=== PATIENT | female | born 1960 | race Caucasian/White ===

== ENCOUNTER 2016-11-14 06:50 | Observation (INO) | payer OTHER ==
[2016-11-14] VITALS (12 sets, daily range): BP systolic 106–141; BP diastolic 64–97; PULSE 67–86; RESP 18–20; TEMP 97.7–98.2; O2SAT 94–98
[~2016-11-14] VITALS: Ht 160 cm; Wt 98.8 kg
[~2016-11-14 06:50] MED LIST: ADVAI100I; ALBU8I INH; ALLE24TA PO; CULT10CA2 PO; HYDR-2768 PO; IBUP-1116 PO; LORA-474 PO; METO100T PO; PANT20 PO; PRED20 PO; SPIRCAP INH; VITA-83 PO
[2016-11-14] MEDS ORDERED: ADVA250A INH (07:20)
[2016-11-14] MEDS ORDERED: ALBUAER3 INH (07:20)
[2016-11-14] MEDS ORDERED: PROT40TA PO (07:20)
[2016-11-14] MEDS ORDERED: LORA1TAB12 PO (07:20)
[2016-11-14] MEDS ORDERED: METO100T PO (07:20)
[2016-11-14] MEDS ORDERED: SPIRCAP INH (07:20)
--- NOTE | 2016-11-14 07:27 | PD ---
HPI Chief Complaint: Chest Pain Time Seen by Provider: 07:18 Travel History International Travel<30 days: No Contact w/Intl Traveler<30days: No Traveled to known affect area: No History of Present Illness HPI 55-year-old female notes chest pressure across her left chest intermittently over the past month. She states today she had a feeling of generalized weakness and felt like she was given a pass out additionally. She states that recently her doctor increased her Advair dose to manage her COPD and since then she hasn't had any issues with her COPD. She denies increased use in her rescue inhaler. She denies other concurrent complaints. She denies taking an aspirin yet today. She states she feels worse when she moves around. She denies other modifying factors. Quality is pressure. Severity is moderate. She states had a cardiac catheterization with Dr. Clifton 2 years ago that showed narrow vessels without significant damage but too narrow to stent per patient. PFSH Past Medical History Asthma: Yes Autoimmune Disease: Yes (SJOGRENS) Anxiety: Yes Cancer: No Cardiovascular Problems: Yes (HX OF CP/POSS GASTRIC PAIN/CARDIAC CATH-TINY VEINS) COPD: Yes Diminished Hearing: No Endocrine: No Gastrointestinal Disorders: Yes (GASTROPARESIS/SJOGREN'S DISEASE) GERD: Yes Glaucoma: No Genitourinary: No Hepatitis: No Hiatal Hernia: No Hypertension: Yes Immune Disorder: Yes (SJORGRENS DISEASE) Musculoskeletal: Yes (OA) Neurologic: Yes (BACK AND NECK) Psychiatric: Yes (CLAUSTROPHOBIA, ANXIETY) Reproductive: No Respiratory: Yes (COPD) Immunizations Current: Yes Pneumonia: Yes Thyroid Disease: No PNEUMOCCOCAL Vaccine (Year): 2 ?: Not Menopausal: Yes : 3 Para: 3 Miscarriage: 0 : 0 Past Surgical History Abdominal Surgery: Yes ( EXPLORATORY LAP, MIDLINE HERNIA REPAIR, EXP LAP FOR ADHESIONS) Appendectomy: Yes (2001) Cardiac Surgery: Yes (CARDIAC CATH) Cholecystectomy: Yes (3) Endocrine Surgery: No Gynecologic Surgery: Yes (TL, HYSTERECTOMY) Hysterectomy: Yes (partial) Joint Replacement: Yes (LEFT/RIGHT TOTAL KNEE) Oral Surgery: Yes (TONSILLECTOMY AND ADENOIDECTOMY) Pacemaker: No Tonsillectomy: Yes Other Surgery: Yes (2001,"part of intestines removed,ileum and cecum") Family History Family Myocardial Infarction: Yes Social History Alcohol Use: No Tobacco Use: Yes (07/18-1 PPD) Substance Use: No Allergies-Medications (Allergen,Severity, Reaction): Coded Allergies: Amoxicillin (Verified Allergy, Severe, YEAST INFECTION, 11/14/16) AMOXICILLIN TABS Contrast Media (Verified Allergy, Severe, hives, 11/14/16) Honey Bee (Verified Allergy, Severe, "allergic to honey,throat closes up" , 11/14/16) Latex (Verified Allergy, Severe, RASH,ITCHING, 11/14/16) Morphine (Verified Allergy, Severe, HIVES, 11/14/16) Nut Tree (Verified Allergy, Severe, "throat closes up", 11/14/16) [place] Nut (Verified Allergy, Severe, "throat closes up", 11/14/16) Shellfish (Verified Allergy, Severe, HIVES, 11/14/16) Iodine (Verified Allergy, Unknown, TOPICAL IODINE CAUSES RASH, 11/14/16) Reglan (Verified Adverse Reaction, Severe, ANXIETY, 11/14/16) REGLAN TABS Wheat (Verified Adverse Reaction, Severe, GI UPSET, 11/14/16) Uncoded Allergies: HONEY (Allergy, Severe, HIVES, SOB, 07/15/11) HONEY IN FOOD ADHES (Allergy, Mild, RASH, 02/16/15) LATEX BANDAIDS, NOTHING WITH LATEX Reported Meds & Prescriptions Reported Meds & Active Scripts Active Reported Lorazepam 1 Mg Tab 1 Mg PO BID PRN Protonix (Pantoprazole Sodium) 40 Mg Tab 40 Mg PO DAILY Metoprolol Tartrate 100 Mg Tab 100 Mg PO BID Spiriva Handihaler (Tiotropium Inh) 18 Mcg Cap 18 Mcg INH DAILY 1 capsule = 18 mcg Proair Hfa 8.5 GM Inh (Albuterol Sulfate) 90 Mcg/Act Aer 2 Puff INH Q4-6H PRN 108 mcg/actuation Advair Diskus Inh (Fluticasone-Salmeterol Inh) 250-50 Mcg/Blist Aer 1 Puff INH BID Rinse mouth after use. Review of Systems Except as stated in HPI: all other systems reviewed are Neg Physical Exam Narrative GENERAL: Well-nourished, well-developed patient. SKIN: Warm and dry. HEAD: Normocephalic and atraumatic. EYES: No injection or drainage. ENT: No nasal drainage noted. NECK: Supple, trachea midline. CARDIOVASCULAR: Regular rate and rhythm RESPIRATORY: Breath sounds equal bilaterally. No accessory muscle use. GASTROINTESTINAL: Abdomen soft, non-tender, nondistended. EXTREMITIES: No edema. NEUROLOGICAL: Awake and alert. Motor and sensory grossly within normal limits. Normal speech. Data Data Last Documented VS Vital Signs Date Time Temp Pulse Resp B/P Pulse Ox O2 Delivery O2 Flow Rate FiO2 11/14/16 08:41 67 18 111/64 98 Room Air 11/14/16 06:58 97.7 Orders Electrocardiogram (11/14/16 07:23) Ckmb (Isoenzyme) Profile (11/14/16 07:23) Complete Blood Count With Diff (11/14/16 07:23) Comprehensive Metabolic Panel (11/14/16 07:23) Magnesium (Mg) (11/14/16 07:23) Prothrombin Time / Inr (Pt) (11/14/16 07:23) Act Partial Throm Time (Ptt) (11/14/16 07:23) Troponin I (11/14/16 07:23) Chest, Single Ap (11/14/16 07:23) Ecg Monitoring (11/14/16 07:23) Bilateral Bp Monitoring (11/14/16 07:23) Iv Access Insert/Monitor (11/14/16 07:23) Oximetry (11/14/16 07:23) Aspirin (Aspirin) (11/14/16 07:30) Sodium Chloride 0.9% Flush (Ns Flush) (11/14/16 07:30) Nitroglycerin Sl (Nitrostat Sl) (11/14/16 07:30) Sodium Chlorid 0.9% 500 Ml Inj (Ns 500 M (11/14/16 07:30) CKMB (11/14/16 07:30) CKMB% (11/14/16 07:30) Admit Order (Ed Use Only) (11/14/16 08:31) Labs Laboratory Tests Test 11/14/16 07:30 White Blood Count 5.8 TH/MM3 Red Blood Count 4.64 MIL/MM3 Hemoglobin 12.3 GM/DL Hematocrit 37.6 % Mean Corpuscular Volume 81.1 FL Mean Corpuscular Hemoglobin 26.4 PG Mean Corpuscular Hemoglobin 32.6 % Concent Red Cell Distribution Width 15.4 % Platelet Count 293 TH/MM3 Mean Platelet Volume 8.4 FL Neutrophils (%) (Auto) 57.0 % Lymphocytes (%) (Auto) 29.8 % Monocytes (%) (Auto) 8.4 % Eosinophils (%) (Auto) 3.9 % Basophils (%) (Auto) 0.9 % Neutrophils # (Auto) 3.3 TH/MM3 Lymphocytes # (Auto) 1.7 TH/MM3 Monocytes # (Auto) 0.5 TH/MM3 Eosinophils # (Auto) 0.2 TH/MM3 Basophils # (Auto) 0.1 TH/MM3 CBC Comment DIFF FINAL Differential Comment Prothrombin Time 10.1 SEC Prothromb Time International 0.9 RATIO Ratio Activated Partial 24.7 SEC Thromboplast Time Sodium Level 142 MEQ/L Potassium Level 3.5 MEQ/L Chloride Level 105 MEQ/L Carbon Dioxide Level 26.0 MEQ/L Anion Gap 11 MEQ/L Blood Urea Nitrogen 13 MG/DL Creatinine 0.84 MG/DL Estimat Glomerular Filtration 70 ML/MIN Rate Random Glucose 122 MG/DL Calcium Level 8.5 MG/DL Magnesium Level 1.8 MG/DL Total Bilirubin 0.3 MG/DL Aspartate Amino Transf 28 U/L (AST/SGOT) Alanine Aminotransferase 45 U/L (ALT/SGPT) Alkaline Phosphatase 67 U/L Total Creatine Kinase 216 U/L Creatine Kinase MB 4.0 NG/ML Creatine Kinase MB % 1.9 % Troponin I LESS THAN 0.02 NG/ML Total Protein 6.5 GM/DL Albumin 3.5 GM/DL MDM Medical Decision Making Medical Screen Exam Complete: Yes Emergency Medical Condition: Yes Medical Record Reviewed: Yes (past history confirmed) Interpretation(s) EKG shows NSR, no ST elevation or depression, and no arrhythmias. No significant T-wave inversions. CBC & BMP Diagram 11/14/16 07:30 Last 24 hours Impressions Chest X-Ray 11/14/16 0723 Signed Impressions: Service Date/Time: Monday, November 14, 2016 07:58 - CONCLUSION: Bibasilar atelectasis. Doyle Macario MD Differential Diagnosis Musculoskeletal, gastritis, cardiac, pneumothorax.... Narrative Course Will check blood work, chest x-ray, EKG and dose with aspirin and nitroglycerin and reevaluate ed workup no acute, ED workup with mild CK elevation. Patient agrees to chest pain center observation for further testing Physician Communication Physician Communication dr morton agrees to admit Diagnosis Primary Impression: Chest pain Qualified Code: R07.9 - Chest pain, unspecified type Admitting Information Admitting Physician Requests: Observation Yadi Abbott MD November 14, 2016 07:27 Yadi Abbott MD November 14, 2016 07:27
[2016-11-14] MEDS ORDERED: SODIUM CHLORID 0.9% 500 ML INJ 500 ML IV ONE (07:30)
[2016-11-14] MEDS ORDERED: ASPIRIN 325 MG TAB PO ONE (07:30)
[2016-11-14] MEDS ORDERED: SODIUM CHLORIDE 0.9% FLUSH 10 ML FLUSH IVF PRN (07:30)
[2016-11-14] MEDS ORDERED: NITROGLYCERIN 0.4 MG SL 25 TABS/BTL SL ONE (07:30)
[2016-11-14 07:42] LABS: AUTOMATED NEUTROPHIL # 3.3 TH/MM3 (1.8-7.7); BASOPHIL # 0.1 TH/MM3 (0-0.2); BASOPHIL % 0.9 % (0.0-2.0); EOSINOPHIL # 0.2 TH/MM3 (0-0.4); EOSINOPHIL % 3.9 % (0.0-4.0); HEMATOCRIT 37.6 % (35.0-46.0); HEMO FLAGS DIFF FINAL; LYMPH % 29.8 % (9.0-44.0); LYMPHOCYTE # 1.7 TH/MM3 (1.0-4.8); MEAN CELL VOLUME 81.1 FL (80.0-100.0); MEAN CORPUSCULAR HEMOGLOBIN 26.4 PG (27.0-34.0); MEAN CORPUSCULAR HGB CONC 32.6 % (32.0-36.0); MONO % 8.4 % (0.0-8.0); PLATELET COUNT 293 TH/MM3 (150-450); RED BLOOD COUNT 4.64 MIL/MM3 (4.00-5.30); RED CELL DISTRIBUTION WIDTH 15.4 % (11.6-17.2); WHITE BLOOD COUNT 5.8 TH/MM3 (4.0-11.0)
[2016-11-14 07:51] LABS: CHLORIDE 105 MEQ/L (98-107); POTASSIUM 3.5 MEQ/L (3.5-5.1); SODIUM (NA) 142 MEQ/L (136-145)
[2016-11-14 07:54] LABS: APTT (PATIENT) 24.7 SEC (24.3-30.1); INTERNATIONAL NORMALIZED RATIO 0.9 RATIO; PROTHROMBIN TIME - PATIENT 10.1 SEC (9.8-11.6)
[2016-11-14 07:56] LABS: ANION GAP 11 MEQ/L (5-15); BLOOD UREA NITROGEN 13 MG/DL (7-18); MAGNESIUM 1.8 MG/DL (1.5-2.5)
[2016-11-14 07:59] LABS: ALT (GPT) 45 U/L (10-53); AST (GOT) 28 U/L (15-37); GLOMERULAR FILTRATION RATE 70 ML/MIN (>89)
[2016-11-14 08:00] LABS: TOTAL BILIRUBIN ADULT 0.3 MG/DL (0.2-1.0)
[2016-11-14 08:02] LABS: ALKALINE PHOSPHATASE 67 U/L (45-117); CREATINE KINASE 216 U/L (26-192)
--- NOTE | 2016-11-14 08:14 | RADHPO ---
EXAM DATE/TIME: 11/14/2016 07:58 [facility] COMPARISON: CHEST SINGLE AP, February 19, 2016, 8:16. INDICATIONS : Chest pain, weakness, dizziness. MEDICAL HISTORY : Hypertension. Chronic obstructive pulmonary disease. Asthma, smoker SURGICAL HISTORY : Cardiac cath ENCOUNTER: Initial ACUITY: 1 day PAIN SCORE: 2/10 LOCATION: Bilateral chest FINDINGS: A single view of the chest demonstrates diminished lung volumes with bibasilar atelectasis. Heart nor mal in size. Osseous structures are intact. CONCLUSION: Bibasilar atelectasis. Doyle Macario MD on November 14, 2016 at 8:12 Board Certified Radiologist. This report was verified electronically.
[2016-11-14] MEDS ORDERED: HYDR25TA5 PO (09:08)
[2016-11-14] MEDS ORDERED: RESP: ALBUTEROL 2.5 MG/IPRATROPIUM 0.5 MG NEB (PRN) NEB (09:30)
[2016-11-14] MEDS ORDERED: NITROGLYCERIN 0.4 MG SL 25 TABS/BTL SL PRN (09:30)
[2016-11-14] MEDS ORDERED: SODIUM CHLORIDE 0.9% FLUSH 10 ML FLUSH IV FLUSH PRN (09:30)
[2016-11-14] MEDS ORDERED: ONDANSETRON HCL 4 MG/2 ML VIAL IV PRN ×2 (09:30→15:15)
[2016-11-14 11:27] LABS: CREATINE KINASE 203 U/L (26-192)
--- NOTE | 2016-11-14 11:32 | HHI.HP ---
[facility] Primary Care Physician Dionisio David MD Admission Diagnosis chest pain Diagnoses: (1) Chest pain Diagnosis: Principal (2) Hypertension Diagnosis: Secondary (3) Tobacco use Diagnosis: Secondary Chief Complaint: Chest pain Travel History International Travel<30 Days: No Contact w/Intl Traveler <30 Da: No Traveled to Known Affected Are: No History of Present Illness 55-year-old female with rather significant medical history with hypertension, gastroparesis, sjogrens syndrome, on diabetes, chronic affective pulmonary disease who presented to the hospital because of chest pain. She states that she has had chest discomfort for the last 6 weeks was located left anterior chest radiating up into the left side of her neck into her shoulder ever since she had a tooth pulled and was placed on antibiotics. She states that she woke up at 4:00 this morning at approximate 5:30 she states the pain developed again with other symptoms to include lightheadedness, shortness of breath, diaphoresis, nausea but no vomiting, shortness of breath. She indicates the pain was a 3/10 on a pain scale. At the time of seeing the patient she states that the pain is a 5/10 on a pain scale. It was not relieved by nitroglycerin. Because of worsening symptoms he came to the hospital for evaluation. Patient states that she has gone to licensed and certified midwife for which she had a cardiac catheterization done in 2010, in which her catheterization was clear. Patient states that she feels that the discomfort is because of her stomach abnormalities. She is being followed by GI in outpatient setting. Because her symptoms and risk factors is recommended by ER physician the patient be observed in the chest pain center for further evaluation management. Review of Systems Constitutional: COMPLAINS OF: Diaphoretic episodes, Dizziness, DENIES: Fatigue , Fever, Weight gain, Weight loss, Chills, Change in appetite, Night Sweats Eyes: DENIES: Blurred vision, Diplopia, Eye inflammation, Eye pain, Vision loss , Double Vision Ears, nose, mouth, throat: DENIES: Vertigo, Nasal discharge, Throat pain, Ear Pain, Running Nose, Sinus Pain Respiratory: COMPLAINS OF: Shortness of breath, DENIES: Apneas, Cough, Snoring , Wheezing, Hemoptysis, Sputum production Cardiovascular: COMPLAINS OF: Chest pain, DENIES: Palpitations, Syncope, Dyspnea on Exertion, Lower Extremity Edema, Orthopnea Gastrointestinal: COMPLAINS OF: Abdominal pain, Diarrhea, Nausea, DENIES: Black stools, Bloody stools, Constipation, Vomiting, Difficulty Swallowing, Anorexia Neurologic: DENIES: Abnormal gait, Headache, Localized weakness, Paresthesias, Seizures, Speech Problems, Tremor, Poor Balance Psychiatric: COMPLAINS OF: Anxiety, DENIES: Confusion, Mood changes, Depression Past Family Social History Past Medical History Hypertension Gastroparesis Borderline diabetes Sjogren's syndrome Chronic tobacco use Anxiety Chronic obstructive pulmonary disease Past Surgical History Tonsillectomy Appendectomy Cholecystectomy Hysterectomy Right knee surgery Left knee surgery 2 Exploratory laparoscopy Midline hernia repair Cardiac catheterization Reported Medications Reported Meds & Active Scripts Active Reported Hydrochlorothiazide 25 Mg Tab 25 Mg PO DAILY Lorazepam 1 Mg Tab 1 Mg PO BID PRN Protonix (Pantoprazole Sodium) 40 Mg Tab 40 Mg PO DAILY Metoprolol Tartrate 100 Mg Tab 100 Mg PO BID Spiriva Handihaler (Tiotropium Inh) 18 Mcg Cap 18 Mcg INH DAILY 1 capsule = 18 mcg Proair Hfa 8.5 GM Inh (Albuterol Sulfate) 90 Mcg/Act Aer 2 Puff INH Q4-6H PRN 108 mcg/actuation Advair Diskus Inh (Fluticasone-Salmeterol Inh) 250-50 Mcg/Blist Aer 1 Puff INH BID Rinse mouth after use. Allergies: Coded Allergies: Amoxicillin (Verified Allergy, Severe, YEAST INFECTION, 11/14/16) AMOXICILLIN TABS Contrast Media (Verified Allergy, Severe, hives, 11/14/16) Honey Bee (Verified Allergy, Severe, "allergic to honey,throat closes up" , 11/14/16) Latex (Verified Allergy, Severe, RASH,ITCHING, 11/14/16) Morphine (Verified Allergy, Severe, HIVES, 11/14/16) Nut Tree (Verified Allergy, Severe, "throat closes up", 11/14/16) [place] Nut (Verified Allergy, Severe, "throat closes up", 11/14/16) Shellfish (Verified Allergy, Severe, HIVES, 11/14/16) Iodine (Verified Allergy, Unknown, TOPICAL IODINE CAUSES RASH, 11/14/16) Reglan (Verified Adverse Reaction, Severe, ANXIETY, 11/14/16) REGLAN TABS Wheat (Verified Adverse Reaction, Severe, GI UPSET, 11/14/16) Uncoded Allergies: HONEY (Allergy, Severe, HIVES, SOB, 07/15/11) HONEY IN FOOD ADHES (Allergy, Mild, RASH, 02/16/15) LATEX BANDAIDS, NOTHING WITH LATEX Family History Reviewed and significant for mother with cancer, grandfather with heart disease and myocardial infarction Social History Patient continues smoke one pack a cigarettes a day since she was 15 years old. Denies any alcohol or illicit drugs Physical Exam Vital Signs Vital Signs Date Time Temp Pulse Resp B/P Pulse Ox O2 Delivery O2 Flow Rate FiO2 11/14/16 08:41 67 18 111/64 98 Room Air 11/14/16 07:54 18 11/14/16 07:53 78 18 106/67 95 Room Air 11/14/16 07:37 74 18 124/86 97 Room Air 11/14/16 07:10 18 96 Room Air 11/14/16 06:58 97.7 84 20 141/97 98 Physical Exam GENERAL: Well-developed, well-nourished, in no acute distress. alert and orientated HEENT: Head is normocephalic without any lesions or masses noted. Facial features are symmetric. Eyes: Pupils equal round reactive to light. Extraocular muscles are intact. Conjunctivae were clear. Oropharyngeal: Pharynx without any erythema edema. Tongue is midline without deviation. Buccal mucosa is moist without any masses or lesions NECK: Supple without any masses. Trachea midline no deviation. No JVD, no bruits are appreciated CARDIAC: Regular rhythm, regular rate. S1/S2 are heard. No murmurs gallops or rubs. The pain is reproducible on palpation LUNGS: Clear to auscultation bilaterally. No wheeze, rhonchi or rales. No use of accessory muscles on inspiration or expiration. ABDOMEN: Soft, nontender. Nondistended. Bowel sounds heard in all 4 quadrants. No organomegaly or masses. Negative rebound, negative guarding EXTREMITIES: No edema, pulses are equal bilaterally. No cyanosis or clubbing NEUROLOGY: Mood and affect appear appropriate. Cranial nerves II through XII grossly intact. Muscle strength 5/5 in upper and lower extremities bilaterally. Deep tendon reflexes are 2+ in upper and lower extremities bilaterally. Laboratory Laboratory Tests Test 11/14/16 07:30 White Blood Count 5.8 Red Blood Count 4.64 Hemoglobin 12.3 Hematocrit 37.6 Mean Corpuscular Volume 81.1 Mean Corpuscular Hemoglobin 26.4 Mean Corpuscular Hemoglobin 32.6 Concent Red Cell Distribution Width 15.4 Platelet Count 293 Mean Platelet Volume 8.4 Neutrophils (%) (Auto) 57.0 Lymphocytes (%) (Auto) 29.8 Monocytes (%) (Auto) 8.4 Eosinophils (%) (Auto) 3.9 Basophils (%) (Auto) 0.9 Neutrophils # (Auto) 3.3 Lymphocytes # (Auto) 1.7 Monocytes # (Auto) 0.5 Eosinophils # (Auto) 0.2 Basophils # (Auto) 0.1 CBC Comment DIFF FINAL Differential Comment Prothrombin Time 10.1 Prothromb Time International 0.9 Ratio Activated Partial 24.7 Thromboplast Time Sodium Level 142 Potassium Level 3.5 Chloride Level 105 Carbon Dioxide Level 26.0 Anion Gap 11 Blood Urea Nitrogen 13 Creatinine 0.84 Estimat Glomerular Filtration 70 Rate Random Glucose 122 Calcium Level 8.5 Magnesium Level 1.8 Total Bilirubin 0.3 Aspartate Amino Transf 28 (AST/SGOT) Alanine Aminotransferase 45 (ALT/SGPT) Alkaline Phosphatase 67 Total Creatine Kinase 216 Creatine Kinase MB 4.0 Creatine Kinase MB % 1.9 Troponin I LESS THAN 0.02 Total Protein 6.5 Albumin 3.5 Result Diagram: 11/14/1672911/14/16729 Imaging Last Impressions Chest X-Ray 11/14/16 0723 Signed Impressions: Service Date/Time: Monday, November 14, 2016 07:58 - CONCLUSION: Bibasilar atelectasis. Doyle Macario MD Assessment and Plan Problem List: (1) Atypical chest pain ICD Code: R07.89 Status: Acute (2) Chest pain ICD Code: R07.9 Status: Acute (3) Hypertension ICD Code: I10 Status: Acute (4) Tobacco use ICD Code: Z72.0 Status: Acute Assessment and Plan 55-year-old female who presented to hospital because of 6 weeks of left anterior chest pain with increased risk factors to include age, tobacco use , hypertension, family history of heart disease Chest pain, typical We'll continue to rule out for any acute coronary event with serial cardiac enzymes which are negative thus far We'll continue monitor serial cardiac enzymes to rule out any changes. First EKG reviewed by myself indicating normal sinus rhythm without any changes If patient ruled out for any acute coronary event by serial EKGs and enzymes will pursue nuclear stress test rule out any underlying ischemia Continue oxygen, aspirin, beta tsering, nitroglycerin as needed Hypertension, blood pressure stable this time Continue home medications Chronic obstructive pulmonary disease Continue O2 supplementation maintain O2 sats greater than 92% Duo nebs as needed Continue Advair DVT prevention Sequential compression devices Written by Ray Nogueira, acting as scribe for Dr. Sims on 11/14/16 at 11: 32. This note was transcribed by scribe Ray Nogueira. I, Dr. Doyle Sims personally performed the history, physical exam, and medical decision making; and confirmed the accuracy of the information in the transcribed note. Authenticated by Dr. Doyle Sims on 11/14/16 at 11:32. Code Status Full code Discussed Condition With patient Problem Qualifiers (1) Chest pain: Qualified Code: R07.9 - Chest pain, unspecified type (2) Hypertension: Qualified Code: I15.9 - Secondary hypertension Ray Nogueira November 14, 2016 11:32 Doyle Sims MD November 14, 2016 11:46
[2016-11-14] MEDS: ACETAMINOPHEN 500 MG CPLT PO PRN ×2 (11:34→17:05)
[2016-11-14 11:40] LABS: CKMB 3.8 NG/ML (0.5-3.6)
[2016-11-14 13:47] LABS: CREATINE KINASE 168 U/L (26-192)
[2016-11-14 13:59] LABS: CKMB 3.4 NG/ML (0.5-3.6)
[2016-11-14] MEDS ORDERED: TEMAZEPAM 15 MG CAP PO PRN (15:15)
[2016-11-14] MEDS ORDERED: ALUMINUM/MAGNESIUM/SIMETH 30 ML CUP PO PRN (15:15)
[2016-11-14] MEDS ORDERED: DOCUSATE SODIUM 100 MG CAP PO PRN (15:15)
[2016-11-14] MEDS: LORazepam 1 MG TAB PO PRN (17:05)
[2016-11-14] MEDS: METOPROLOL TARTRATE 100 MG TAB PO SCH (20:44)
[2016-11-14] MEDS: BUDESONIDE-FORMOTEROL 160/4.5 MCG INHALER INH SCH (20:50)
[2016-11-14] MEDS: SODIUM CHLORIDE 0.9% FLUSH 10 ML FLUSH IV FLUSH SCH (20:51)
[2016-11-15] VITALS (16 sets, daily range): BP systolic 102–135; BP diastolic 64–90; PULSE 65–85; RESP 18–21; TEMP 96.2–98.4; O2SAT 95–97
[2016-11-15] MEDS: ACETAMINOPHEN 500 MG CPLT PO PRN ×3 (07:27→17:05)
[2016-11-15] MEDS: SODIUM CHLORIDE 0.9% FLUSH 10 ML FLUSH IV FLUSH SCH ×2 (08:39→21:27)
[2016-11-15] MEDS: BUDESONIDE-FORMOTEROL 160/4.5 MCG INHALER INH SCH ×2 (08:40→21:27)
[2016-11-15] MEDS: LORazepam 1 MG TAB PO PRN ×2 (09:21→21:31)
[2016-11-15] MEDS ORDERED: REGADENOSON INJ 0.4 MG/5 ML SYR IV ONE (09:52)
--- NOTE | 2016-11-15 10:07 | HHI.PR ---
Subjective Remarks Follow-up atypical chest pain 11/15/16-patient seen and examined, denies any chest pain ; currently nothing by mouth pending Lexiscan stress test Objective Vitals Vital Signs Date Time Temp Pulse Resp B/P Pulse Ox O2 Delivery O2 Flow Rate FiO2 11/15/16 08:37 18 11/15/16 08:00 98.1 68 18 102/74 96 11/15/16 04:00 97.2 70 21 118/71 96 11/15/16 00:00 96.2 81 18 128/90 95 11/14/16 23:00 86 11/14/16 20:30 95 21 11/14/16 20:00 97.8 86 20 120/82 97 11/14/16 16:12 96 21 11/14/16 16:00 98.1 83 18 135/87 94 11/14/16 15:00 75 11/14/16 11:00 98.2 68 18 120/79 95 11/14/16 11:00 75 I/O 11/14/16 11/14/16 11/14/16 11/15/16 11/15/16 11/15/16 07:00 15:00 23:00 07:00 15:00 23:00 Intake Total 740 ml 480 ml 0 ml Balance 740 ml 480 ml 0 ml Intake Oral 240 ml 480 ml 0 ml IV Total 500 ml # Voids 3 1 # Bowel Movements 0 0 Result Diagram: 11/14/16 0730 11/14/16 0730 Imaging Last Impressions Chest X-Ray 11/14/16 0723 Signed Impressions: Service Date/Time: Monday, November 14, 2016 07:58 - CONCLUSION: Bibasilar atelectasis. Doyle Macario MD Objective Remarks GENERAL: NAD SKIN: Warm and dry. HEAD: Normocephalic. EYES: No scleral icterus. No injection or drainage. NECK: Supple, trachea midline. No JVD or lymphadenopathy. CARDIOVASCULAR: Regular rate and rhythm without murmurs, gallops, or rubs. RESPIRATORY: Breath sounds equal bilaterally. No accessory muscle use. GASTROINTESTINAL: Abdomen soft, non-tender, nondistended. MUSCULOSKELETAL: No cyanosis, or edema. BACK: Nontender without obvious deformity. No CVA tenderness. A/P Problem List: (1) Atypical chest pain ICD Code: R07.89 Status: Acute (2) Chest pain ICD Code: R07.9 Status: Acute (3) Hypertension ICD Code: I10 Status: Chronic (4) Tobacco use ICD Code: Z72.0 Status: Chronic Assessment and Plan 55-year-old female with Chest pain, typical ACS ruled out per protocol with serial cardiac enzyme Nuclear stress test rule out any underlying ischemia pending this a.m. Continue oxygen, aspirin, beta tsering, nitroglycerin as needed Hypertension, blood pressure stable this time Continue home medications Chronic obstructive pulmonary disease Continue O2 supplementation maintain O2 sats greater than 92% Duo nebs as needed Continue Advair DVT prevention Sequential compression devices Problem Qualifiers (1) Chest pain: Qualified Code: R07.9 - Chest pain, unspecified type (2) Hypertension: Qualified Code: I15.9 - Secondary hypertension Doyle Sims MD November 15, 2016 10:07
--- NOTE | 2016-11-15 10:46 | RADHPO ---
EXAM DATE/TIME: 11/15/2016 09:09 [facility] COMPARISON: No previous studies available for comparison. INDICATIONS : Mid chest pain with shortness of breath and diaphoresis for six weeks. Angina. DOSE: 26.4 mCi Tc99m Myoview at stress. 8.7 mCi Tc99m Myoview at rest. 0.4 mg Lexiscan STRESS SYMPTOMS: Shortness of breath and chest pressure. EJECTION FRACTION: 69% MEDICAL HISTORY : Diabetes mellitus type 2. Hypertension. Chronic obstructive pulmonary disease. SURGICAL HISTORY : Hysterectomy. Cholecystectomy. Appendectomy. ENCOUNTER: Initial ACUITY: 2 months PAIN SCALE: 5/10 LOCATION: Midsternal chest TECHNIQUE: The patient underwent pharmacologic stress with infusion of prescribed dose. Continuous ECG tracing was monitored during stress. Gated SPECT imaging was performed after stress and conventional SPECT i maging was performed at rest. The examination was performed on a SPECT/CT scanner, both attenuation and non-corrected datasets were reviewed. FINDINGS: DISTRIBUTION: The maximum perfused segment at stress is in the septal wall. PERFUSION STUDY: There is mildly diminished relative radiotracer delivery to the cardiac apex with a slight degree of redistribution. This is best seen on the non-attenuation corrected acquisitions. GATED STUDY: There is intact wall motion and thickening without hypokinetic or dyskinetic segments. CONCLUSION: Mild severity apical perfusion abnormality with mild redistribution RISK CATEGORY: Intermediate (1-3% Annual Mortality Rate) Ervin Mercer MD on November 15, 2016 at 10:40 Board Certified Radiologist. This report was verified electronically.
[2016-11-15] MEDS: ASPIRIN 325 MG TAB PO SCH (10:53)
[2016-11-15] MEDS: HYDROCHLOROTHIAZIDE 25 MG TAB PO SCH (10:53)
[2016-11-15] MEDS: PANTOPRAZOLE SOD 40 MG DELAYED RELEASE TAB PO SCH (10:53)
[2016-11-15] MEDS: METOPROLOL TARTRATE 100 MG TAB PO SCH ×2 (10:54→21:27)
--- NOTE | 2016-11-15 14:05 | HHI.FPPN ---
Addendum to progress note ADDENDUM Reason for addendum: Additonal documentation Additional information Nuclear stress test with mild severity apical perfusion abnormality with mild redistribution, intermediate risk. I discussed this with Dr. 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 Helga Leger November 15, 2016 14:05
[2016-11-15 14:12] LABS: HEMOGLOBIN A1a 1.4 %; HEMOGLOBIN A1b 1.2 %; HEMOGLOBIN Ao 83.3 %; HEMOGLOBIN P3 4.1 %
--- NOTE | 2016-11-15 14:36 | EKG ---
Date Performed: 11/14/2016 Time Performed: 13:18:54 PTAGE: 55 years EKG: Sinus rhythm . Normal ECG PREVIOUS TRACING : 11/14/2016 10.37 Since previous tracing, no significant change noted DOCTOR: Jarrod Costa Interpretating Date/Time 11/15/2016 14:35:14
--- NOTE | 2016-11-15 14:36 | EKG ---
Date Performed: 11/14/2016 Time Performed: 10:37:08 PTAGE: 55 years EKG: Sinus rhythm . Normal ECG PREVIOUS TRACING : 11/14/2016 07.02 Since previous tracing, no significant change noted DOCTOR: Jarrod Costa Interpretating Date/Time 11/15/2016 14:35:24
--- NOTE | 2016-11-15 14:37 | EKG ---
Date Performed: 11/14/2016 Time Performed: 07:02:36 PTAGE: 55 years EKG: Sinus rhythm Normal ECG PREVIOUS TRACING : 02/16/2015 08.59 Since previous tracing, no significant change noted DOCTOR: Jarrod Costa Interpretating Date/Time 11/15/2016 14:36:22
--- NOTE | 2016-11-15 14:49 | TR ---
Date Performed: 11/15/2016 Time Performed: 09:44:14 DOCTOR: Jarrod Costa DRUG LIST: CLINICAL HISTORY: ANGINA REASON FOR TEST: Angina REASON FOR ENDING: OBSERVATION: CONCLUSION: Lexiscan stress test was performed under standard four minute protocol. Radionuclid e was injected one minute prior to ending the test. No electrocardiographic abormalities were present to suggest ischemia. Nuclear imaging and interpretation are pending. COMMENTS:
[2016-11-16] VITALS (18 sets, daily range): BP systolic 116–132; BP diastolic 71–82; PULSE 63–84; RESP 18–20; TEMP 98–98.6; O2SAT 95–98
[2016-11-16] MEDS: ACETAMINOPHEN 500 MG CPLT PO PRN (02:00)
[2016-11-16] MEDS: METOPROLOL TARTRATE 100 MG TAB PO SCH (08:37)
[2016-11-16] MEDS: HYDROCHLOROTHIAZIDE 25 MG TAB PO SCH (08:38)
[2016-11-16] MEDS: BUDESONIDE-FORMOTEROL 160/4.5 MCG INHALER INH SCH (08:38)
[2016-11-16] MEDS: PANTOPRAZOLE SOD 40 MG DELAYED RELEASE TAB PO SCH (08:38)
[2016-11-16] MEDS: ASPIRIN 325 MG TAB PO SCH (08:38)
[2016-11-16] MEDS: SODIUM CHLORIDE 0.9% FLUSH 10 ML FLUSH IV FLUSH SCH (08:38)
[2016-11-16] MEDS: LORazepam 1 MG TAB PO PRN (08:54)
--- NOTE | 2016-11-16 08:58 | HHI.PR ---
Subjective Remarks No chest pain today. Possible heart cath based on abnormality on stress test. Patient is a smoker. Her last heart cath was about 5 years ago. Objective Vital Signs Date Time Temp Pulse Resp B/P Pulse Ox O2 Delivery O2 Flow Rate FiO2 11/16/16 08:01 68 11/16/16 07:33 65 11/16/16 06:00 70 11/16/16 05:00 68 11/16/16 04:00 98.0 68 20 116/71 96 11/16/16 04:00 63 11/16/16 03:00 64 11/16/16 02:00 72 11/16/16 01:00 74 11/16/16 00:00 98.6 73 20 122/81 98 11/16/16 00:00 70 11/15/16 23:00 74 11/15/16 22:00 70 11/15/16 21:32 97 11/15/16 21:00 74 11/15/16 20:00 98.4 75 20 121/78 97 11/15/16 20:00 73 11/15/16 19:00 74 11/15/16 19:00 20 11/15/16 18:13 85 11/15/16 18:00 80 11/15/16 17:00 77 11/15/16 16:55 98.0 65 18 135/64 96 11/15/16 12:00 97.2 65 18 109/64 96 11/15/16 10:52 78 18 116/82 I/O 11/15/16 11/15/16 11/15/16 11/16/16 11/16/16 11/16/16 07:00 15:00 23:00 07:00 15:00 23:00 Intake Total 0 ml 350 ml 480 ml 480 ml Output Total 300 ml Balance 0 ml 350 ml 180 ml 480 ml Intake Oral 0 ml 350 ml 480 ml 480 ml Output Urine Total 300 ml # Voids 1 2 # Bowel Movements 0 0 Result Diagram: 11/14/1672911/14/16 07 Imaging Last Impressions Myocardial Perfusion Scan Nuc Med 11/15/16 0600 Signed Impressions: Service Date/Time: Tuesday, November 15, 2016 09:09 - CONCLUSION: Mild severity apical perfusion abnormality with mild redistribution RISK CATEGORY: Intermediate (1-3%% Annual Mortality Rate) Ervin Mercer MD Chest X-Ray 11/14/16 0723 Signed Impressions: Service Date/Time: Monday, November 14, 2016 07:58 - CONCLUSION: Bibasilar atelectasis. Doyle Macario MD Objective Remarks GENERAL: NAD, A&Ox3 SKIN: Warm and dry. HEAD: Normocephalic. EYES: No scleral icterus. No injection or drainage. NECK: Supple, trachea midline. No JVD or lymphadenopathy. CARDIOVASCULAR: Regular rate and rhythm without murmurs, gallops, or rubs. RESPIRATORY: Breath sounds equal bilaterally. No accessory muscle use. GASTROINTESTINAL: Abdomen soft, non-tender, nondistended. MUSCULOSKELETAL: No cyanosis, or edema. BACK: Nontender without obvious deformity. No CVA tenderness. Medications and IVs Administered Medications Medications (Trade) Dose Ordered Sig/Nito Route PRN Reason Start Time Stop Time Status Last Admin Dose Admin Sodium Chloride (NS Flush) 2 ml BID IV FLUSH 11/14/16 21:00 11/16/16 08:38 Acetaminophen (Tylenol) 500 mg Q4H PRN PO HEADACHE 11/14/16 09:30 11/16/16 02:00 Aspirin (Aspirin) 325 mg DAILY PO 11/15/16 09:00 11/16/16 08:38 Pantoprazole Sodium (Protonix) 40 mg DAILY PO 11/15/16 09:00 11/16/16 08:38 Budesonide/ Formoterol Fumarate (Symbicort 160-4.5 Inh) 2 puff BID INH 11/14/16 21:00 11/16/16 08:38 Hydrochlorothiazide (Hydrodiuril) 25 mg DAILY PO 11/15/16 09:00 11/16/16 08:38 Metoprolol Tartrate (Lopressor) 100 mg BID PO 11/14/16 21:00 11/16/16 08:37 Al Hydrox/Mg Hydrox/Simethicone (Mag-Al Plus Susp Liq) 30 ml Q6H PRN PO DYSPEPSIA 11/14/16 15:15 11/14/16 17:05 Temazepam (Restoril) 15 mg HS PRN PO INSOMNIA 11/14/16 15:15 11/14/16 21:17 Lorazepam (Ativan) 1 mg BID PRN PO ANXIETY 11/14/16 17:00 11/15/16 21:31 A/P Problem List: (1) Chest pain ICD Code: R07.9 Assessment & Plan: Symptoms improved Troponins normal Abnormal stress test Cardiology following Possible heart cath (2) Atypical chest pain ICD Code: R07.89 Assessment & Plan: Symptoms improved Troponins normal Abnormal stress test Cardiology following Possible heart cath (3) Hypertension ICD Code: I10 Assessment & Plan: Stable Follow BP No change to current treatment (4) Tobacco use ICD Code: Z72.0 Assessment & Plan: Counseled to quit smoking Problem Qualifiers (1) Chest pain: Qualified Code: R07.9 - Chest pain, unspecified type (2) Hypertension: Qualified Code: I15.9 - Secondary hypertension Matt Gordon MD November 16, 2016 08:58
[2016-11-16] MEDS ORDERED: IOHEXOL 350 MG/ML 50 ML BTL (for Cath Lab) OTHER ONE (10:35)
[2016-11-16] MEDS ORDERED: HEPARIN-NS/PF INJ 500 ML ONE (10:43)
[2016-11-16] MEDS ORDERED: HEPARIN SODIUM - IV 10,000 UNITS/10 ML VIAL ONE (10:45)
[2016-11-16] MEDS ORDERED: VERAPAMIL HCL 5 MG/2 ML VIAL ONE (10:45)
[2016-11-16] MEDS ORDERED: MIDAZOLAM HCL 2 MG/2 ML VIAL ONE (10:45)
[2016-11-16] MEDS ORDERED: NITROGLYCERIN INJ 5 ML ONE (10:47)
[2016-11-16] MEDS ORDERED: diphenhydrAMINE HCL 50 MG/ML VIAL ONE (10:49)
[2016-11-16] MEDS ORDERED: methylPREDNISolone SOD SUCC 125 MG/2 ML VIAL ONE (10:49)
[2016-11-16] MEDS ORDERED: FAMOTIDINE 20 MG/2 ML VIAL ONE (10:49)
--- NOTE | 2016-11-16 11:42 | CATHPROC ---
[facility] HIS Report Study Information Study Number Admission Scheduled Start Study Start [id number] 11/14/2016 11/16/2016 Nov 16 2016 10:29AM Referring Institution Admit Source Facility Department 1 Other [facility] Consultant Physician and Clinical Staff Initial Andrew Doshi Slasher Operator Samuel Steward,FRANDY Other cathlab, cathlab Recorder Ania Barrera,CUSTOMS ENTRY CLERK TECH2 Scrub Vik, Tiffanie,RT(R) Procedures Performed Procedure Location (Site) Vessel Name Coronary Angiograms LCA Left Coronary Coronary Angiograms RCA Right Coronary L Heart Cath Wire insertion Radial (right) Radial Art. Equipment Time Business Account Executive Description Size Mfg Part Number Used/Scraped TRANSDUCER, TRUWAVE 10:39 [employer] * [id number] Used W/Hitmeister CONCEPT DRAPE, RADIAL FEMORAL FULL 10:39 * [id number] Used DEVELOPMENT BODY 10:39 [employer] PACK, CCL CUSTOM * [id number] Used 10:39 [employer] SUPPORT, ARTERIAL ADULT [id number] Used SHEATH, FR6 RADIAL PRELUDE 11:41 [employer] MEDICAL FR 6 [id number] Used EASE 11CM 10:39 [employer] MEDICAL WIRE, EXCHANGE 260CM 3MMJ 260CM [id number] Used 10:39 NAMIC MANIFOLD, 4 PORT * [id number] Used 10:39 [employer]ED OMNIPAQUE, 350 MG, 100ML 100ML [id number] Used 10:39 FANG MEDICAL BLANKET,WARM AIR CCL * [id number] Used BAND, RADIAL COMPRESSION TR 10:39 [employer] MEDICAL 29CM [id number] Used LARGE SHEATH, FR6 TRANSRADIAL 10:39 [employer] MEDICAL FR 6 [id number] Used SLENDER 10CM History: Allergies Allergy Reaction Amoxicillin YEAST INFECTION Contrast Media hives Honey Bee "allergic to honey,throat closes up" Iodine TOPICAL IODINE CAUSES RASH Latex RASH,ITCHING Morphine HIVES Red House Nut "throat closes up" Reglan ANXIETY Shellfish HIVES Nut Tree "throat closes up" Wheat GI UPSET ADHES RASH HONEY HIVES, SOB History: Risk Factors Family History of Hypertension Dyslipidemia Previous NM Previous Heart Failure Premature CAD Yes No No No No Prior Valve Prior PCI Prior CABG Surgery No No No Cerebrovascular Peripheral Artery Chronic Lung On Dialysis Diabetes Disease Disease Disease No No No Yes Yes History: Stress Tests Stress or Imaging Studies Performed Yes Standard Exercise Stress Test No Stress Echo No Stress Test SPECT No Stress Test CMR Stress Test CMR Result Stress Test CMR Ischemia Risk/Extent Yes Positive Intermediate Cardiac CTA Coronary Calcium Score No No History: Other Current Smoker Method Packs a Day Years Used Pack Years Yes Cigars 1 30 30 Labs Hgb (g/dl) Hct (%) WBC (l/cumm) Platelets (thousands) 12.00-18.00 37.00-55.00 4.80-10.80 140.00-450.00 12.3 37.6 5.8 293 Glucose (mg/dl) BUN (mg/dl) Creatinine (mg/dl) BUN:Creatinine (1:x) 60.00-110.00 8.00-20.00 0.10-9.00 10.00-20.00 122 13 0.8 16.3 Na (meq/l) K (meq/l) 138.00-146.00 3.80-5.10 142 3.5 INR (PTT:PT) 0.50-2.00 0.9 CPK (u/l) 37.00-289.00 168 Medication Medication Total Dose (Bolus/Oral) Medication Total Dosage/Unit 1% XYLOCAINE 10 mL BENADRYL 25 mg FENTANYL 50 mcg PEPCID 20 mg RADIAL COCKTAIL 5 mL (Bolus) SOLU-MEDROL 125 mg VERSED 1 mg Medications (Bolus/Oral) Medication Time Given Dosage/Unit Administered By Reason SOLU-MEDROL 11/16/2016 11:00:00 AM 125 mg Samuel Steward 125 mg SOLU-MEDROL given in lab by Samuel Steward RN in Left Antecubital via Peripheral IV. Ordered by Andrew Hennessy. BENADRYL 11/16/2016 11:00:20 AM 25 mg Samuel Steward 25 mg BENADRYL given in lab by Samuel Steward RN in Left Antecubital via Peripheral IV. Ordered by Andrew Shell. PEPCID 11/16/2016 11:00:30 AM 20 mg Samuel Steward 20 mg PEPCID given in lab by Samuel Steward RN in Left Antecubital via Peripheral IV. Ordered by Andrew Schafer. VERSED 11/16/2016 11:05:06 AM 1 mg Ferlitto, Samuel 1 mg VERSED given in lab by Samuel Steward, RN in Left Antecubital via Peripheral IV. Ordered by Andrew Almonte. FENTANYL 11/16/2016 11:05:08 AM 50 mcg Samuel Steward 50 mcg FENTANYL given in lab by Samuel Steward, RN in Left Antecubital via Peripheral IV. Ordered by Andrew Hennessy. 1% XYLOCAINE 11/16/2016 11:06:34 AM 10 mL Andrew Hennessy 10 mL 1% XYLOCAINE given in lab by Andrew Hennessy in Right Radial via Subcutaneous. Ordered by Andrew Schafer. RADIAL COCKTAIL 11/16/2016 11:08:02 AM 5 mL (Bolus) Andrew Hennessy 5 mL (Bolus) RADIAL COCKTAIL given in lab by Andrew Hennessy via Radial. Using [Solution Name]. Ord ered by Andrew Hennessy. Ntg 200mcg Verapamil 2.5mg [id number] Medication (Drip) Medication Time Given Dosage/Unit Concentration/Unit Diluent (ml) Solution IV Solutions 11/16/2016 10:38:35 AM 0 mL (IV) NaCl .9 Patient arrived on IV Solutions in Left Antecubital via Peripheral IV. Pump/Drip Flow = 20 ml/hr usin g NaCl .9. Initial Case Assessment Cardiovascular HR NIBP 64 146/86 Edema Present Skin color Skin None Normal Warm Dry Circulatory - Right Pulses Dorsalis Pedis Femoral 3 1 Scale (0,1,2,3,4,d) Circulatory - Left Pulses Dorsalis Pedis Femoral 3 1 Scale (0,1,2,3,4,d) Neurological State Oriented to time-place- Alert Moves all extremities person Respiration - General Respiration Rate SpO2 (%) (B/min) 18 98 Final Case Assessment Cardiovascular HR NIBP 66 130/79 Edema Present Skin color Skin None Normal Warm Dry Circulatory - Right Pulses Dorsalis Pedis Femoral 3 1 Scale (0,1,2,3,4,d) Circulatory - Left Pulses Dorsalis Pedis Femoral 3 1 Scale (0,1,2,3,4,d) Neurological State Oriented to time-place- Alert Moves all extremities person Respiration - General Respiration Rate SpO2 (%) (B/min) 16 96 Chronological Log Time Study Chronological Log 10:35:23 Patient arrived via Bed. 10:38:24 Patient Name, D.O.B, / Armband Verified By R.N. 10:38:25 Consent signed by the physician and the patient and verified by the [employer] [facility] Consultant staff. 10:38:26 Pre-op and post- op instructions given; patient acknowledges understanding of instructions. 10:38:28 Patient has been NPO for More than 6Hrs. 10:38:29 Skin Breakdown. 10:38:31 Stevie Prominences Protected 10:38:33 A # 20 IV was noted in the Antecubital (left). Grade = 0 10:38:35 Patient arrived on IV Solutions in Left Antecubital via Peripheral IV. Pump/Drip Flow = 20 ml/hr using NaCl .9. 10:38:40 History and physical on the chart or being dictated. Vitals capture started with the following parameters, Patient=Adult, Interval=5 min, Initial Pr huzxax=613 mmHg, 10:43:59 Deflation Rate=5 mmHg Assessment: Initial Case, HR=64 BPM, XUSG=688/86 mmhg, Edema=None, Color=Normal, Skin = Warm, D ry Right Pulses: Fidencio Ped=3, Femoral=1 10:44:03 Left Pulses: Fidencio Ped=3, Femoral=1 Neurological: State=Alert, Ox3, HERNANDEZ Respiration: Resp=18 B/min, SpO2=98 % 10:44:40 HR=74 bpm, KRAN=386/86 mmhg, SpO2=96.0 %, Resp=18 B/min, Pain=0, John=10, Marina=2 10:46:22 Reference ECG taken 10:49:39 HR=63 bpm, DSOZ=245/76 mmhg, SpO2=96.0 %, Resp=13 B/min, Pain=0, John=10, Marina=2 10:52:24 Right radial, right brachial, and groin(s) prepped with 2% chlorhexidine, and with a 3 min. waiting time. 10:55:21 HR=64 bpm, CGEZ=714/89 mmhg, SpO2=97.0 %, Resp=10 B/min, Pain=0, John=10, Marina=2 10:58:06 Pressure channel 1 zeroed. 10:59:37 HR=65 bpm, XGGG=270/91 mmhg, SpO2=97.0 %, Resp=12 B/min, Pain=0, John=10, Marina=2 125 mg SOLU-MEDROL given in lab by Samuel Steward RN in Left Antecubital via Peripheral IV. Or dered by Gerhard, 11:00:00 Andrew. 11:00:20 25 mg BENADRYL given in lab by Samuel Steward RN in Left Antecubital via Peripheral IV. Or dered by Andrew Hennessy. 11:00:30 20 mg PEPCID given in lab by Samuel Steward RN in Left Antecubital via Peripheral IV. Orde red by Andrew Hennessy. 11:04:38 HR=63 bpm, MLQN=908/88 mmhg, SpO2=96.0 %, Resp=14 B/min, Pain=0, John=10, Marina=2 Time Out. Correct patient, correct procedure,correct physician, ,power injector not loaded with contrast with surgical 11:05:01 team present. Time Out Concurred by , individual staff in procedure 11:05:06 1 mg VERSED given in lab by Samuel Steward RN in Left Antecubital via Peripheral IV. Order ed by Andrew Hennessy. 11:05:08 50 mcg FENTANYL given in lab by Samuel Steward RN in Left Antecubital via Peripheral IV. O rdered by Andrew Hennessy. 11:05:26 Case Start 10 mL 1% XYLOCAINE given in lab by Andrew Hennessy in Right Radial via Subcutaneous. Ordered by Gerhard 11:06:34 Andrew. 11:07:42 Access site was Radial Artery. A SHEATH, FR6 TRANSRADIAL SLENDER 10CM FR 6 was advanced into the Radial (right) using the Albino dana Forddingmaryann 11:07:48 technique. 5 mL (Bolus) RADIAL COCKTAIL given in lab by Andrew Hennessy via Radial. Using [Solution Name ]. Ordered by 11:08:02 Andrew Hennessy. Ntg 200mcg Verapamil 2.5mg [id number] 11:09:40 HR=67 bpm, BIWR=242/84 mmhg, SpO2=97.0 %, Resp=9 B/min, Pain=0, John=10, Marina=2 A JR 4.0 INFINITI CATHETER FR 5 was advanced over a wire. OMNIPAQUE, 350 MG, 100ML 100ML was us ed for 11:11:55 injections. Recorded Pressure: Ao, HR=67, Condition=Condition 1 11:12:50 (Aorta) Ao 105/68/87 11:13:08 The RCA was injected and visualized at various angles. OMNIPAQUE, 350 MG, 100ML 100ML used . Recorded Pressure: LV, HR=67, Condition=Condition 1 11:14:25 (Left Ventricle) LV 112/1/14 11:14:39 HR=67 bpm, PFDU=558/65 mmhg, SpO2=93.0 %, Resp=10 B/min, Pain=0, John=10, Marina=2 Recorded Pressure: LV, Ao, HR=68, Condition=Condition 1 11:14:39 (Left Ventricle) LV 119/1/13, (Aorta) Ao 124/63/95 After removing the current catheter a JL 3.5 INFINITI CATHETER FR 5 was advanced over a WIRE, E XCHANGE 260CM 11:14:41 3MMJ 260CM. OMNIPAQUE, 350 MG, 100ML 100ML was used for injections. 11:17:26 The LCA was injected and visualized at various angles. OMNIPAQUE, 350 MG, 100ML 100ML used . 11:19:36 HR=68 bpm, CWJF=268/72 mmhg, SpO2=94.0 %, Resp=8 B/min, Pain=0, John=10, Marina=2 11:20:30 Case End 11:21:20 A WIRE, EXCHANGE 260CM 3MMJ 260CM was inserted via Radial (right). 11:21:29 Catheter was removed 11:22:36 Catheter(s) removed without difficulty 11:24:26 Radial Compression Device Used. 11:24:59 Cine recording checked. 11:25:06 Bedside Report will be given. 11:25:13 A Left Heart Cath was performed. 11:25:18 HR=68 bpm, BBWE=746/79 mmhg, SpO2=97 %, Resp=8 B/min, Pain=0, John=10, Marina=2 Assessment: Final Case, HR=66 BPM, XULI=305/79 mmhg, Edema=None, Color=Normal, Skin = Warm, Dr damon Right Pulses: Fidencio Ped=3, Femoral=1 11:27:42 Left Pulses: Fidencio Ped=3, Femoral=1 Neurological: State=Alert, Ox3, HERNANDEZ Respiration: Resp=16 B/min, SpO2=96 % 11:27:55 Vitals capture stopped. 11:34:45 Patient moved to stretcher 11:37:08 Clinical correlaton risk stratification. End Study - Contrast Media Used In Study Contrast Total Opened (mL) Total Used (mL) Total Wasted (mL) Omnipaque 30 30 0 End Study - Maximum Contrast Load Max Contrast Load (mL) 617.6 End Study - Radiation Exposure Fluoro Time (minutes) 3.5 End Study - Patient Disposition Complications Transferred To No Telemetry Bed
[2016-11-16] MEDS ORDERED: MISC INFORMATION XX ONE (11:45)
--- NOTE | 2016-11-16 13:42 | EC ---
Study Study Date:11/16/2016 STUDY CONCLUSIONS SUMMARY - Procedure narrative: Transthoracic echocardiography. Image quality was good. Scanning was performed from the parasternal, apical, and subcostal acoustic windows. - Left ventricle: The cavity size was normal. Wall thickness was normal. Systolic function was normal. The estimated ejection fraction was in the range of 60% to 65%. Wall motion was normal; there were no regional wall motion abnormalities. - Mitral valve: Trace to mild regurgitation. - Tricuspid valve: Trace to mild regurgitation. If LV function is below 40, please consider prescribing an ACEI or ARB or document rationale for non-use. PROCEDURE DATA STUDY STATUS: Elective. Procedure: Transthoracic echocardiography. Image quality was good. Scanning was performed from the parasternal, apical, and subcostal acoustic windows. Study completion: The patient tolerated the procedure well. Transthoracic echocardiography. M-mode, complete 2D, complete spectral Doppler, and color Doppler. Height: Height: 63in. Weight: Weight: 217.5lb. Body mass index: BMI: 38.6kg/m^2. Body surface area: BSA: 2.01m^2. Patient status: Inpatient. CARDIAC ANATOMY LEFT VENTRICLE: The cavity size was normal. Wall thickness was normal. Systolic function was normal. The estimated ejection fraction was in the range of 60% to 65%. Wall motion was normal; there were no regional wall motion abnormalities. AORTIC VALVE: Trileaflet; normal thickness leaflets. Doppler: Transvalvular velocity was within the normal range. There was no stenosis. No regurgitation. AORTA: Aortic root: The aortic root was normal in size. MITRAL VALVE: Structurally normal valve. Doppler: Transvalvular velocity was within the normal range. There was no evidence for stenosis. Trace to mild regurgitation. Valve area by pressure half-time: 3.73cm^2. Indexed valve area by pressure half-time: 1.86cm^2/m^2. Peak gradient: 3mm Hg (D). LEFT ATRIUM: The atrium was normal in size. RIGHT VENTRICLE: The cavity size was normal. Wall thickness was normal. PULMONIC VALVE: Doppler: Transvalvular velocity was within the normal range. There was no evidence for stenosis. No regurgitation. TRICUSPID VALVE: Structurally normal valve. Doppler: Transvalvular velocity was within the normal range. Trace to mild regurgitation. Peak gradient: 19mm Hg (D). PULMONARY ARTERY: The main pulmonary artery was normal-sized. Systolic pressure was within the normal range. RIGHT ATRIUM: The atrium was normal in size. PERICARDIUM: There was no pericardial effusion. SYSTEMIC VEINS: Inferior vena cava: The vessel was normal in size. Patient weight: 217.5lb _Ejection fraction:_ 65-75% _Fractional shortening:_ 32% up to 5Kg 5-11.5Kg 11.6-22.9Kg 23-45Kg 45-57Kg Aortic Root 7-13 <17 13-22 17-27 17-27 LA diam 6-13 <23 24-38 33-47 37-40 RVID 10-17 7-15 7-15 7-18 8-17 LVIDd 12-22 <32 24-38 33-47 37-40 LVPW 2-4 3-6 5-7 6-8 7-8 IVS 2-4 3-6 5-7 6-8 7-8 BASIC MEASUREMENTS ADULT NORMAL Left ventricle LV internal dimension, ED, chordal *37.9 mm 43-52 level, PLAX LV internal dimension, ES, chordal 25.9 mm 23-38 level, PLAX Fractional shortening, chordal level, 32 % >29 PLAX LV posterior wall thickness, ED 11.3 mm IVS/LVPW ratio, ED 0.9 <1.3 Volume, ED, MOD, 1-plane 67 ml Volume, ES, MOD, 1-plane 25 ml Ejection fraction, MOD, 1-plane 63 % Stroke volume, MOD, 1-plane 42 ml Volume index, ED, MOD, 1-plane 33 ml/m^2 Volume index, ES, MOD, 1-plane 12 ml/m^2 Stroke index, MOD, 1-plane 20.9 ml/m^2 Ventricular septum Septal thickness, ED 10.2 mm Aortic valve Leaflet separation 16 mm 15-26 Left atrium Anterior-posterior dimension 33 mm Anterior-posterior dimension index 1.64 cm/m^2 <2.2 Right ventricle RV internal dimension, ED, PLAX 26.3 mm 19-38 BASIC MEASUREMENTS ADULT NORMAL Aortic valve Leaflet separation 16 mm 15-26 Aorta Root diameter, ED 27 mm 20-37 DOPPLER MEASUREMENTS ADULT NORMAL Aortic valve Peak velocity, S 132 cm/s Mitral valve Peak E-wave velocity 83.4 cm/s Peak A-wave velocity 66.6 cm/s Pressure half-time 59 ms Peak gradient, D 3 mm Hg Peak E/A ratio 1.3 Valve area, pressure half-time 3.73 cm^2 Valve area index, pressure half-time 1.86 cm^2/m^2 Tricuspid valve Peak gradient, D 19 mm Hg Maximal inflow velocity 217 cm/s Systemic veins Estimated CVP 10 mm Hg Pulmonic valve Peak velocity, S 73.3 cm/s LEGEND: Mean values are shown as u=mean value. Asterisk (*) meneses values outside specified normal range. Prepared and signed by Nicola Dubois [id number]
[2016-11-16] MEDS ORDERED: ASPI81CH CHEW (15:10)
--- NOTE | 2016-11-16 15:13 | HHI.DS ---
Discharge Summary Admission Date November 14, 2016 at 08:31 Discharge Date: November 16, 2016 Admitting Diagnosis chest pain (1) Atypical chest pain ICD Code: R07.89 (2) Chest pain ICD Code: R07.9 Diagnosis: Principal (3) Hypertension ICD Code: I10 Diagnosis: Secondary (4) Tobacco use ICD Code: Z72.0 Diagnosis: Secondary Procedures heart cath echo Brief History - From Admission 55-year-old female with rather significant medical history with hypertension, gastroparesis, sjogrens syndrome, on diabetes, chronic affective pulmonary disease who presented to the hospital because of chest pain. She states that she has had chest discomfort for the last 6 weeks was located left anterior chest radiating up into the left side of her neck into her shoulder ever since she had a tooth pulled and was placed on antibiotics. She states that she woke up at 4:00 this morning at approximate 5:30 she states the pain developed again with other symptoms to include lightheadedness, shortness of breath, diaphoresis, nausea but no vomiting, shortness of breath. She indicates the pain was a 3/10 on a pain scale. At the time of seeing the patient she states that the pain is a 5/10 on a pain scale. It was not relieved by nitroglycerin. Because of worsening symptoms he came to the hospital for evaluation. 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 Patient states that she feels that the discomfort is because of her stomach abnormalities. She is being followed by GI in outpatient setting. Because her symptoms and risk factors is recommended by ER physician the patient be observed in the chest pain center for further evaluation management. CBC/BMP: 11/14/16 0730 11/14/16 0730 Significant Findings Laboratory Tests Test 11/14/16 11/14/16 11/14/16 11/15/16 07:30 10:35 13:20 06:10 Mean Corpuscular Hemoglobin 26.4 PG (27.0-34.0) Monocytes (%) (Auto) 8.4 % (0.0-8.0) Estimat Glomerular Filtration 70 ML/MIN (>89) Rate Random Glucose 122 MG/DL (74-106) Total Creatine Kinase 216 U/L 203 U/L (26-192) (26-192) Creatine Kinase MB 4.0 NG/ML 3.8 NG/ML (0.5-3.6) (0.5-3.6) Troponin I LESS THAN 0.02 LESS THAN 0.02 LESS THAN 0.02 NG/ML NG/ML NG/ML (0.02-0.05) (0.02-0.05) (0.02-0.05) Hemoglobin A1c 6.6 % (4.3-6.0) Imaging Last Impressions Myocardial Perfusion Scan Nuc Med 11/15/16 0600 Signed Impressions: Service Date/Time: Tuesday, November 15, 2016 09:09 - CONCLUSION: Mild severity apical perfusion abnormality with mild redistribution RISK CATEGORY: Intermediate (1-3%% Annual Mortality Rate) Ervin Mercer MD Chest X-Ray 11/14/16 0765 Signed Impressions: Service Date/Time: Monday, November 14, 2016 07:58 - CONCLUSION: Bibasilar atelectasis. Doyle Macario MD PE at Discharge GENERAL: NAD SKIN: Warm and dry. HEAD: Normocephalic. EYES: No scleral icterus. No injection or drainage. NECK: Supple, trachea midline. No JVD or lymphadenopathy. CARDIOVASCULAR: Regular rate and rhythm without murmurs, gallops, or rubs. RESPIRATORY: Breath sounds equal bilaterally. No accessory muscle use. GASTROINTESTINAL: Abdomen soft, non-tender, nondistended. MUSCULOSKELETAL: No cyanosis, or edema. BACK: Nontender without obvious deformity. No CVA tenderness. Hospital Course Mrs. Dinero was admitted to [facility] for chest pain. She had a positive finding on stress testing and came to the main campus of [place] for a heart cath. The heart cath shows no stentable disease. She also has a relatively benign echocardiogram. She is recommended to stop smoking and is cleared by cardiology for discharge to home today. Medically stable and clear for discharge. Pt Condition on Discharge: Stable Discharge Disposition: Discharge Home Discharge Time: <= 30 minutes Discharge Instructions DIET: Follow Instructions for: Heart Healthy Diet Activities you can perform: Regular-No Restrictions Follow up Referrals: PCP Follow-up - 2 Weeks New Medications: Aspirin (Aspirin) 81 Mg Chew 81 MG CHEW DAILY Blood Clot Prevention #30 Ref 0 TAB Continued Medications: Albuterol 8.5 GM Inh (Proair Hfa 8.5 GM Inh) 90 Mcg/Act Aer 2 PUFF INH Q4-6H 108 mcg/actuation PRN SHORTNESS OF BREATH #1 Ref 0 INHALER Fluticasone-Salmeterol Inh (Advair Diskus Inh) 250-50 Mcg/Blist Aer 1 PUFF INH BID Rinse mouth after use. #1 Ref 0 INHALER Hydrochlorothiazide (Hydrochlorothiazide) 25 Mg Tab 25 MG PO DAILY #30 Ref 0 TAB Lorazepam (Lorazepam) 1 Mg Tab 1 MG PO BID PRN ANXIETY Ref 0 TAB Metoprolol Tartrate (Metoprolol Tartrate) 100 Mg Tab 100 MG PO BID #60 Ref 0 TAB Pantoprazole (Protonix) 40 Mg Tab 40 MG PO DAILY Ulcer Prevention #30 Ref 0 TAB Tiotropium Inh (Spiriva Handihaler) 18 Mcg Cap 18 MCG INH DAILY 1 capsule = 18 mcg COPD #30 Ref 0 CAP Matt Gordon MD November 16, 2016 15:13
--- NOTE | 2016-11-16 15:50 | MB ---
cc: ANDREW JOHNSON DO DATE OF CONSULTATION: 11/16/2016 REASON FOR CONSULTATION: Chest pain, abnormal stress test. HISTORY OF PRESENT ILLNESS Trinidad pérez is a pleasant 55-year-old female who presented to [facility] due to chest pain. She states that she woke up on November 14, 2016 with some pain on the left side of her chest. She has had pain off and on for the past 6 weeks and relates it to after getting a tooth pulled and being on antibiotics. But on November 14 when she woke up the pain seemed to be a little bit more at 3/10, she was also somewhat lightheaded, short of breath and diaphoretic. She attempted to drive to work but at that point decided that she was unable to. She came into the emergency room and troponins were checked which were negative. EKG showed normal sinus rhythm without any ST-T wave changes. She underwent pharmacologic nuclear stress testing which showed a defect at the apex and because of this she was recommended cardiac catheterization. She was transferred to [facility] for consideration. PAST MEDICAL HISTORY 1. Hypertension. 2. Gastroparesis. 3. Probable new onset diabetes mellitus with hemoglobin A1c of 6.6. 4. Sj gren's syndrome. 5. Chronic tobacco use. 6. Anxiety. 7. COPD. PAST SURGICAL HISTORY 1. Cardiac catheterization (August 27, 2010) essentially normal coronaries with minimal luminal irregularities. The question of ventricularization of the waveform on engagement of the left main. 2. Tonsillectomy. 3. Appendectomy. 4. Cholecystectomy. 5. Hysterectomy 6. Right knee surgery. 7. Left knee surgery x2. 8. Exploratory laparoscopy. 9. Midline hernia repair. ALLERGIES 1. ADHES. 2. AMOXICILLIN. 3. CONTRAST. 4. HONEY BEES. 5. IODINE. 6. MORPHINE. 7. NUT TREE. 8. PINE NUT. 9. REGLAN. 10. SHELLFISH. 11. WHEAT. MEDICATION 1. Spiriva 18 mcg daily. 2. Ativan 1 mg b.i.d. 3. Albuterol every 4 hours as needed. 4. Advair 1 puff b.i.d. 5. Metoprolol tartrate 100 mg b.i.d. 6. Protonix 40 mg daily. 7. Hydrochlorothiazide 25 mg daily. FAMILY HISTORY Mother had cancer. She had a grandfather and uncle with early myocardial infarctions. She denies sudden cardiac within the family. SOCIAL HISTORY The patient smokes about a pack of cigarettes a day since the age of 15. Denies alcohol or drug abuse. REVIEW OF SYSTEMS 14-systems were reviewed including osteopathic pertinent positives and negatives above, otherwise negative. PHYSICAL EXAMINATION VITAL SIGNS: Temperature 98.0, heart rate 65, blood pressure 126/82, respirations 18, pulse ox 98% on room air. GENERAL: The patient appears well, in no acute distress, alert, awake and oriented x3. HEENT: Extraocular muscles intact. Mucous membranes moist. NECK: Supple. No JVD at 45 degrees. No carotid bruits heard bilaterally. Carotid upstroke is brisk in nature. HEART: Heart is regular rate and rhythm. Positive first and second heart sounds with no murmurs, gallops or rubs. PMI is nondisplaced. LUNGS: Clear to auscultation bilaterally. No wheezes, rales or rhonchi. ABDOMEN: Soft, nontender, nondistended. No organomegaly noted. EXTREMITIES: Show no clubbing, cyanosis or edema. Femoral and distal pulses intact bilaterally. NEUROLOGIC: No focal deficits. SKIN: Warm, dry and intact. OSTEOPATHIC: Mild lordosis. No kyphoscoliosis or paraspinal tender points. LABORATORY FINDINGS Hemoglobin 12.3, hematocrit 37.6, platelets 293. Potassium 3.5, BUN 13, creatinine 0.84, hemoglobin A1c 6.6, troponins negative x3. Electrocardiogram (November 14, 2016 at 1318) normal sinus rhythm, no acute ST-T wave changes. IMPRESSION 1. Atypical chest pain. 2. Hypertension. 3. Chronic tobacco abuse. 4. New onset diabetes mellitus with a hemoglobin A1c of 6.6. 5. Abnormal pharmacologic nuclear stress test (November 15, 2016) with mild severity apical perfusion abnormality with mild redistribution, risk category intermediate. RECOMMENDATIONS 1. As Ms. Pérez presented with chest pain and had an abnormal stress test showing an intermediate risk, it was recommended she undergo cardiac catheterization. 2. Risks, benefits and alternatives were explained to her and her and she consented as such. 3. She will be left n.p.o. in plan for the procedure today. 4. We will also check a 2-D echo to look at her overall left ventricular function, cardiac structure and possible valvulopathies. 5. If cardiac catheterization and echocardiogram show no significant concern, she may be discharged from a cardiovascular standpoint for followup in the office with me. 6. I did speak to her about her elevated hemoglobin A1c and that she will follow up with her primary doctor and diabetic nematologist for further recommendations. 7. Further recommendations will be made after coronary visualization. Thank you for allowing me to see Trinidad Pérez, if there are any questions, please do not hesitate to call. Andrew Johnson DO VGP/TLL /1:57 PM /3:21 PM
--- NOTE | 2016-11-16 16:18 | MA ---
cc: ANDREW JOHNSON DO DATE: November 16, 2016 PROCEDURE Left heart catheterization, coronary angiogram, sedation 15-minutes. PREPROCEDURE DIAGNOSIS Chest pain, abnormal stress test. POSTPROCEDURE DIAGNOSIS Minimal coronary artery disease. MEDICATIONS GIVEN 1. Versed 1 mg. 2. Fentanyl 15 mcg. 3. Benadryl 25 mg. 4. Solu-Medrol 125 mg. 5. Pepcid 20 mg. 6. Verapamil 2.5 mg. 7. Nitro 200 mcg. 8. Heparin 4000 units. CONTRAST USED 30 ccs. FLUOROSCOPY 3.5 minutes. SEDATION Moderate sedation 15 minutes. PROCEDURAL SUMMARY Trinidad Dinero is a pleasant 55-year-old female who originally presented to [facility] with the complaint of chest pain. Because of her symptoms as well as her risk factors she underwent pharmacologic nuclear stress testing. During this she was found to have an intermediate risk stress test and was recommended cardiac catheterization. Risks, benefits and alternatives were explained to her and her and she consented as such. She was brought to the lab and prepped in the usual sterile fashion. Because of her CONTRAST ALLERGY she was given Solu-Medrol, Pepcid and Benadryl. Right radial artery was accessed using a modified Seldinger technique and placement of a 5/6 Georgian slender sheath. This was easily aspirated and flushed. A JR-4 was then advanced over a J-wire to the ascending aortic root. This was used for selective angiography of the right coronary system. After this a J-wire was used to cross the aortic valve for measurement of left ventricular end-diastolic pressure. JR-4 was then pulled back across the aortic valve showing no significant gradient of aortic stenosis. JR-4 was then exchanged for a JL-3.5 which was used for selective angiography of the left coronary system. After the case the JL-3.5 was removed over a J-wire. A TR band was placed for hemostasis at the radial site. 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 FINDINGS The left main is a normal-appearing vessel with 20% disease ostially. It bifurcates into an LAD and circumflex. LAD overall is a normal-appearing vessel with 10% in the proximal section and a mid lesion of 20%. It gives off [id number] small diagonals with no significant disease. Left circumflex is a medium-sized vessel with no significant disease throughout. It gives off three major obtuse marginals with the first one being relatively small and the second two without significant disease. RCA normal-appearing vessel which is dominant in nature. No significant disease throughout. Left ventricular end-diastolic pressure 13. IMPRESSION 1. Ms. Dinero's stress test appears to be a false positive and has no significant disease. We will continue with medical management of her minimal coronary artery disease. 2. A question of her symptoms are partially GI related. She plans on having an EGD in the near future. 3. We will continue with risk factor modification including blood pressure and blood sugar management as well as diet and exercise. 4. Will check an echocardiogram and if this has no significant concern, she can be discharged from a cardiovascular standpoint for followup in the office with me in the near future. Thank you for allowing me to see Trinidad Dinero, if there are any questions, please do not hesitate to call. Andrew Johnson DO VGP/TLL /2:08 PM /3:49 PM
== END 2016-11-16 16:10 | disposition home or self-care (01) ==
LOC: PHED 06:50 → PHEDA 08:31 → PH3A 10:14 → HCIS 11-15 16:56
PROVIDERS: ADMIT Hospitalist; ATTEND Hospitalist
DX: R07.9 Chest pain, unspecified (principal); R53.1 Weakness; J44.9 Chronic obstructive pulmonary disease, unspecified; J45.909 Unspecified asthma, uncomplicated; M35.00 Sjogren syndrome, unspecified; K31.84 Gastroparesis; K21.9 Gastro-esophageal reflux disease without esophagitis; M19.90 Unspecified osteoarthritis, unspecified site; F17.210 Nicotine dependence, cigarettes, uncomplicated; Z79.899 Other long term (current) drug therapy; J98.11 Atelectasis; R61 Generalized hyperhidrosis; R42 Dizziness and giddiness; F41.9 Anxiety disorder, unspecified; Z82.49 Family history of ischemic heart disease and other diseases of the circulatory system; I15.9 Secondary hypertension, unspecified; R94.39 Abnormal result of other cardiovascular function study; R73.03 Prediabetes
CPT/HCPCS: 71010; 78452; 80053; 82550; 82552; 83036; 83735; 84484; 85025; 85610; 85730; 93005; 93017; 93306; 93454; 96360; 99285; A9502; C1769; C1893; G0378; J1200; J1644; J2250; J2785; J2930; J3010; J7040; Q9967

== ENCOUNTER 2017-07-05 13:21 | Emergency (ER) | payer OTHER ==
[~2017-07-05 13:21] MED LIST changes: +ADVA250A INH; -ADVAI100I; -ALBU8I INH; +ALBUAER3 INH; -ALLE24TA PO; +ASPI-516 CHEW; -CULT10CA2 PO; -HYDR-2768 PO; +HYDR25TA5 PO; -IBUP-1116 PO; -LORA-474 PO; +LORA1TAB12 PO; -PANT20 PO; -PRED20 PO; +PROT40TA PO; -VITA-83 PO
[2017-07-05 13:23] VITALS: BP 198/101; PULSE 121; RESP 20; TEMP 97.8; O2SAT 96
[2017-07-05 14:13] LABS: AUTOMATED NEUTROPHIL # 2.8 TH/MM3 (1.8-7.7); BASOPHIL % 0.7 % (0.0-2.0); EOSINOPHIL # 0.2 TH/MM3 (0-0.4); EOSINOPHIL % 2.3 % (0.0-4.0); HEMATOCRIT 39.5 % (35.0-46.0); HEMOGLOBIN 13.1 GM/DL (11.6-15.3); LYMPH % 45.1 % (9.0-44.0); LYMPHOCYTE # 2.9 TH/MM3 (1.0-4.8); MEAN CELL VOLUME 83.6 FL (80.0-100.0); MEAN CORPUSCULAR HEMOGLOBIN 27.8 PG (27.0-34.0); MEAN CORPUSCULAR HGB CONC 33.3 % (32.0-36.0); MEAN PLATELET VOLUME 7.5 FL (7.0-11.0); MONO % 8.7 % (0.0-8.0); MONOCYTE # 0.6 TH/MM3 (0-0.9); NEUT % 43.2 % (16.0-70.0); PLATELET COUNT 267 TH/MM3 (150-450); RED BLOOD COUNT 4.73 MIL/MM3 (4.00-5.30); RED CELL DISTRIBUTION WIDTH 20.2 % (11.6-17.2); WHITE BLOOD COUNT 6.4 TH/MM3 (4.0-11.0)
[2017-07-05] MEDS ORDERED: PANT40TA3 PO (14:22)
[2017-07-05] MEDS ORDERED: VITA500T83 PO (14:22)
--- NOTE | 2017-07-05 14:22 | PD ---
HPI Chief Complaint: GI Complaint Time Seen by Provider: 14:22 Travel History International Travel<30 days: No Contact w/Intl Traveler<30days: No Traveled to known affect area: No History of Present Illness HPI 56-year-old female came to the emergency room with history of blood in her stool since Monday. Patient says she has had half a dozen episodes where she has had blood in her stool. However the one today all she was at work was the worst that made her come in. The one today fill the toilet bowl and there were couple of small clots as well. No history of dizziness or lightheadedness. Patient says she has had several colonoscopies where she has been diagnosed with colitis and endoscopy where she has been diagnosed with gastritis. The last one was 3 months ago. She called her primary care who asked her to come to the emergency room. Vital signs are stable. Blood test was already initiated in waiting room and by the time I came to see the patient test were all back. PFSH Past Medical History Narrative Medical list of her past medical, surgical, social and family history is reviewed from the nursing note. Arthritis: Yes (OA) Asthma: Yes Autoimmune Disease: Yes (SJOGRENS) Blood Disorders: No Anxiety: Yes Cancer: No Cardiac Catheterization: Yes Cardiovascular Problems: Yes (HX OF CP/POSS GASTRIC PAIN/CARDIAC CATH-TINY VEINS) COPD: Yes Diminished Hearing: No Endocrine: No Gastrointestinal Disorders: Yes (GASTROPARESIS/SJOGREN'S DISEASE) GERD: Yes Glaucoma: No Genitourinary: No Hepatitis: No Hiatal Hernia: No Hypertension: Yes Immune Disorder: Yes (SJORGRENS DISEASE) Musculoskeletal: Yes Neurologic: Yes Psychiatric: Yes (CLAUSTROPHOBIA) Reproductive: No Respiratory: Yes Integumentary: Yes (PSORIOSIS) Immunizations Current: Yes Pneumonia: Yes Thyroid Disease: No Tetanus Vaccination: Unknown PNEUMOCCOCAL Vaccine (Year): 2 ?: Not Menopausal: Yes : 3 Para: 3 Miscarriage: 0 : 0 Past Surgical History Abdominal Surgery: Yes ( EXPLORATORY LAP, MIDLINE HERNIA REPAIR, EXP LAP FOR ADHESIONS) Appendectomy: Yes (2001) Cardiac Surgery: Yes Cholecystectomy: Yes Endocrine Surgery: No Gynecologic Surgery: Yes (TL, HYSTERECTOMY) Hysterectomy: Yes (partial) Joint Replacement: Yes (LEFT/RIGHT TOTAL KNEE) Oral Surgery: Yes Pacemaker: No Tonsillectomy: Yes (ADENOIDECTOMY) Other Surgery: Yes (2001,"part of intestines removed,ileum and cecum") Social History Alcohol Use: No Tobacco Use: Yes (1 ppd) Substance Use: No Allergies-Medications (Allergen,Severity, Reaction): Coded Allergies: amoxicillin (Unverified Allergy, Severe, YEAST INFECTION, 02/28/17) AMOXICILLIN TABS bee venom protein (honey bee) (Unverified Allergy, Severe, "allergic to honey,throat closes up", 02/28/17) diatrizoate meglumine (Unverified Allergy, Severe, hives, 02/28/17) gadobenic acid (Unverified Allergy, Severe, hives, 02/28/17) gadodiamide (Unverified Allergy, Severe, hives, 02/28/17) gadoteridol (Unverified Allergy, Severe, hives, 02/28/17) iodixanol (Unverified Allergy, Severe, hives, 02/28/17) iohexol (Unverified Allergy, Severe, hives, 02/28/17) latex (Unverified Allergy, Severe, RASH,ITCHING, 02/28/17) morphine (Unverified Allergy, Severe, HIVES, 02/28/17) pine nut (Unverified Allergy, Severe, "throat closes up", 02/28/17) shellfish derived (Unverified Allergy, Severe, HIVES, 02/28/17) tree nut (Unverified Allergy, Severe, "throat closes up", 02/28/17) iodine (Unverified Allergy, Unknown, TOPICAL IODINE CAUSES RASH, 02/28/17) potassium iodide (Unverified Allergy, Unknown, TOPICAL IODINE CAUSES RASH , 02/28/17) povidone-iodine (Unverified Allergy, Unknown, TOPICAL IODINE CAUSES RASH, 02/28/17) sodium iodide (Unverified Allergy, Unknown, TOPICAL IODINE CAUSES RASH, ) sodium iodide (Unverified Allergy, Unknown, TOPICAL IODINE CAUSES RASH, ) metoclopramide (Unverified Adverse Reaction, Severe, ANXIETY, 02/28/17) REGLAN TABS wheat (Unverified Adverse Reaction, Severe, GI UPSET, 8/15/17) Uncoded Allergies: HONEY (Allergy, Severe, HIVES, SOB, 07/15/11) HONEY IN FOOD ADHES (Allergy, Mild, RASH, 02/16/15) LATEX BANDAIDS, NOTHING WITH LATEX Comments List of her allergies reviewed from the nursing note. Reported Meds & Prescriptions Reported Meds & Active Scripts Active Reported Vitamin C ER (Ascorbic Acid) 500 Mg Yisel 500 Mg PO DAILY Pantoprazole (Pantoprazole Sodium) 40 Mg Tab 40 Mg PO BID Hydrochlorothiazide 25 Mg Tab 25 Mg PO DAILY Lorazepam 1 Mg Tab 1 Mg PO BID PRN Metoprolol Tartrate 100 Mg Tab 100 Mg PO BID Spiriva Handihaler (Tiotropium Inh) 18 Mcg Cap 18 Mcg INH DAILY 1 capsule = 18 mcg Proair Hfa 8.5 GM Inh (Albuterol Sulfate) 90 Mcg/Act Aer 2 Puff INH Q4-6H PRN 108 mcg/actuation Advair Diskus Inh (Fluticasone-Salmeterol Inh) 250-50 Mcg/Blist Aer 1 Puff INH BID Rinse mouth after use. Narrative Medication List of her home medications reviewed from the nurse's. Review of Systems Except as stated in HPI: all other systems reviewed are Neg Gastrointestinal: Positive: Hematochezia Physical Exam Narrative GENERAL: Awake, alert, obese, no obvious distress SKIN: Focused skin assessment warm/dry. HEAD: Atraumatic. Normocephalic. EYES: Pupils equal and round. No scleral icterus. No injection or drainage. ENT: No nasal bleeding or discharge. Mucous membranes pink and moist. NECK: Trachea midline. No JVD. CARDIOVASCULAR: Regular rate and rhythm. No murmur appreciated. RESPIRATORY: No accessory muscle use. Clear to auscultation. Breath sounds equal bilaterally. GASTROINTESTINAL: Abdomen soft, non-tender, nondistended. Hepatic and splenic margins not palpable. MUSCULOSKELETAL: No obvious deformities. No clubbing. No cyanosis. No edema. NEUROLOGICAL: Awake and alert. No obvious cranial nerve deficits. Motor grossly within normal limits. Normal speech. PSYCHIATRIC: Appropriate mood and affect; insight and judgment normal. Data Data Last Documented VS Orders Orders Complete Blood Count With Diff (07/05/17 13:29) Comprehensive Metabolic Panel (07/05/17 13:29) Prothrombin Time / Inr (Pt) (07/05/17 13:29) Act Partial Throm Time (Ptt) (07/05/17 13:29) Type And Screen (07/05/17 13:29) Ed Discharge Order (07/05/17 15:10) Labs Laboratory Tests Test 07/05/17 13:56 White Blood Count 6.4 TH/MM3 Red Blood Count 4.73 MIL/MM3 Hemoglobin 13.1 GM/DL Hematocrit 39.5 % Mean Corpuscular Volume 83.6 FL Mean Corpuscular Hemoglobin 27.8 PG Mean Corpuscular Hemoglobin Concent 33.3 % Red Cell Distribution Width 20.2 % Platelet Count 267 TH/MM3 Mean Platelet Volume 7.5 FL Neutrophils (%) (Auto) 43.2 % Lymphocytes (%) (Auto) 45.1 % Monocytes (%) (Auto) 8.7 % Eosinophils (%) (Auto) 2.3 % Basophils (%) (Auto) 0.7 % Neutrophils # (Auto) 2.8 TH/MM3 Lymphocytes # (Auto) 2.9 TH/MM3 Monocytes # (Auto) 0.6 TH/MM3 Eosinophils # (Auto) 0.2 TH/MM3 Basophils # (Auto) 0.0 TH/MM3 CBC Comment DIFF FINAL Differential Comment Prothrombin Time 9.7 SEC Prothromb Time International Ratio 1.0 RATIO Activated Partial Thromboplast Time 23.3 SEC Blood Urea Nitrogen 13 MG/DL Creatinine 0.84 MG/DL Random Glucose 117 MG/DL Total Protein 7.1 GM/DL Albumin 3.9 GM/DL Calcium Level 9.1 MG/DL Alkaline Phosphatase 54 U/L Aspartate Amino Transf (AST/SGOT) 18 U/L Alanine Aminotransferase (ALT/SGPT) 45 U/L Total Bilirubin 0.5 MG/DL Sodium Level 139 MEQ/L Potassium Level 3.5 MEQ/L Chloride Level 102 MEQ/L Carbon Dioxide Level 27.0 MEQ/L Anion Gap 10 MEQ/L Estimat Glomerular Filtration Rate 70 ML/MIN MDM Medical Decision Making Medical Screen Exam Complete: Yes Emergency Medical Condition: Yes Medical Record Reviewed: Yes Differential Diagnosis Lower GI bleeding, hemorrhoid Narrative Course 3:15 PM blood test results of back and within normal limit including the H&H. Based on the negative Hemoccult I'm comfortable discharging the patient home. I 've asked to follow up with her GI specialist. Procedures EKG Prior to Arrival: No HemaPrompt Point of Care Internal Pos. & Neg. Controls: Passed Fecal Specimen Occult Blood: Negative Diagnosis Primary Impression: Hematochezia Referrals: Primary Care Physician Additional Instructions: Please call your GI specialist and try to get an appointment for the current symptoms. Return to the ER if the symptoms worsen or any other new concerns. Disposition: 01 DISCHARGE HOME Condition: Stable Morena Barrera MD Jul 05, 2017 14:22
[2017-07-05 14:25] LABS: PROTHROMBIN TIME - PATIENT 9.7 SEC (9.8-11.6)
[2017-07-05 14:33] LABS: ALBUMIN 3.9 GM/DL (3.4-5.0); AST (GOT) 18 U/L (15-37); BLOOD UREA NITROGEN 13 MG/DL (7-18); CALCIUM 9.1 MG/DL (8.5-10.1); CHLORIDE 102 MEQ/L (98-107); CREATININE 0.84 MG/DL (0.50-1.00); GLOMERULAR FILTRATION RATE 70 ML/MIN (>89); GLUCOSE,RANDOM 117 MG/DL (74-106); SODIUM (NA) 139 MEQ/L (136-145)
[2017-07-05 14:36] LABS: ALKALINE PHOSPHATASE 54 U/L (45-117); ALT (GPT) 45 U/L (10-53); TOTAL BILIRUBIN ADULT 0.5 MG/DL (0.2-1.0); TOTAL PROTEIN 7.1 GM/DL (6.4-8.2)
== END 2017-07-05 15:33 | disposition home or self-care (01) ==
LOC: NEPD 13:21
DX: K92.1 Melena (principal); M19.90 Unspecified osteoarthritis, unspecified site; J45.909 Unspecified asthma, uncomplicated; M35.00 Sjogren syndrome, unspecified; F41.9 Anxiety disorder, unspecified; K21.9 Gastro-esophageal reflux disease without esophagitis; I10 Essential (primary) hypertension; F40.240 Claustrophobia; F17.200 Nicotine dependence, unspecified, uncomplicated
CPT/HCPCS: 80053; 85025; 85610; 85730; 86850; 86900; 86901; 99284